=== PATIENT | male | born 1965 | race Caucasian/White ===

== ENCOUNTER 2017-09-10 10:28 | Day surgery (SDC) | payer BC ==
[2017-09-09 15:04] VITALS: BMI 24.7
[2017-09-10] MEDS ORDERED: CEFAZOLIN/Water 2 GM/20 ML SYRINGE ONE (10:58)
[2017-09-10] MEDS ORDERED: Fentanyl 100 MCG/2 ML VIAL ONE ×2 (11:10→13:35)
[2017-09-10] MEDS ORDERED: Midazolam HCl 2 mg/2 ml Vial ONE (11:10)
[2017-09-10] MEDS ORDERED: Dexamethasone 4 mg/ml Vial ONE (11:10)
[2017-09-10] MEDS ORDERED: Bupivacaine HCl 0.5%/Epinephrine 1:200,000/PF 30 ml Vial ONE (14:18)
[2017-09-10] MEDS ORDERED: Meperidine HCl/PF 25 MG/ML VIAL ONE (14:31)
[2017-09-10] MEDS ORDERED: Ondansetron HCl/PF 4 MG/2 ML Vial ONE (14:40)
[2017-09-10] MEDS ORDERED: PROPOFOL 200 MG/20 ML VIAL ONE (14:40)
[2017-09-10] MEDS ORDERED: Ketorolac Tromethamine 30 MG/ML VIAL ONE (14:40)
[2017-09-10] MEDS ORDERED: Lidocaine 1% PF 5 ML VIAL ONE (14:40)
--- NOTE | 2017-09-10 14:56 | RAD ---
LEFT KNEE INTRAOPERATIVE FLUOROSCOPY 4 VIEWS: HISTORY: Fracture. FINDINGS: Intraoperative fluoroscopy was provided for internal fixation as performed by Dr. Louis. Four spo t fluoroscopic images show a total of 4 lag screws transfixing the patella, in anatomic alignment. Fluoro time=22 seconds. POS: [facility]
[2017-09-10] MEDS ORDERED: HYDROcodone/Acetaminophen 5/325 mg Tablet ONE (15:42)
--- NOTE | 2017-09-11 09:59 | OP ---
DATE OF PROCEDURE: 09/10/2017. PREOPERATIVE DIAGNOSIS: Comminuted patellar fracture, left. POSTOPERATIVE DIAGNOSIS: Comminuted patellar fracture, left. SURGICAL PROCEDURE: Open reduction internal fixation, left patella. ANESTHESIA: General. SURGEON: Herve Louis M.D. PILE DRIVER ENGINEER: Jeremias Louis PA-C. TOURNIQUET TIME: 65 minutes at 300 mmHg. IMPLANTS: A 3.5 mm cannulated screws x4. COMPLICATIONS: None. DRAINS: None. SPECIMEN: None. OUTCOME: Satisfactory. INDICATIONS: The patient is a 51-year-old gentleman status post tripped over a gas hose landing dire ctly on the left knee, sustaining a comminuted patellar fracture. After discussion with patient incl uding risks and benefits, we discussed the potential merits of open reduction internal fixation versu s partial patellectomy. At this time, we are going to proceed with anticipated open reduction academic intern al fixation unless the pieces are deemed to be too small for stable fixation. Informed consent has b een obtained. I believe all questions have been answered. DESCRIPTION OF PROCEDURE: The patient was brought to the operating room and a timeout performed foll owed by the induction of general anesthesia. The patient was positioned supine on the OR table and t hen a sterile prep and drape was performed of the left lower extremity. The limb was then exsanguina kenzie with Esmarch bandage, tourniquet inflated to 300 mmHg. A midline anterior knee incision was made . After skin was sharply incised, dissection was carried down sharply down to the level of the perit enon overlying the patellar tendon as well as the periosteum of the patella. The peritenon was incis ed in line with the skin incision and reflected medially and laterally. At this point, he was found to have a small tear of the medial retinaculum with the lateral retinaculum be an intact. The fractu re could easily be palpated through the periosteum. Next, using minimal subperiosteal dissection at the fracture edges, the fracture edges were freed of soft tissue and then a bulb syringe was used to lavage the hematoma from the wound. Next, the vertical split of the superior pole was reapproximated and held in place with a bone tenaculum and then 2 partially threaded guidewires were passed from la teral to medial. Measurement of these guidewires was used to determine the appropriate length cannul ated screws, two cannulated screws partially threaded were then passed from lateral to medial, gettin g good compression of this vertical split of the superior pole. Next, the inferior pole was reapprox imated to this reconstructed superior pole, again held in place with bone tenaculum. Two additional screws were then passed from inferior to superior in standard fashion using the cannulated screw set. This resulted in near anatomic alignment of the fracture with zoroastrian of reasonable joint surfa ce. The small medial retinacular tear was used to allow for digital palpation of the articular surfa ce and this did show significant improvement from his preoperative state and although not anatomic. The small step off was felt to be in the mm to 2 mm range. At this point, it was decided to proceed with a [id number] suture to further stabilize this construct, #5 Ethibond suture was used. This was passed deep to the quadriceps tendon in a [id number] fashion through the patellar tendon an d then securely tied to further support the construct. At this point, the tear of the medial retinac ulum was reapproximated with 0 Vicryl followed by 2-0 Vicryl for the peritenon, and subcutaneous laye rs and then kyle for the skin. A Xeroform gauze, Webril, Manjinder wrap dressing, and knee immobilizer was applied to the knee and then patient was transferred to recovery room in stable condition. The t ourniquet was let down at the completion of dressing with a total time of approximately 65 minutes. There were no complications.
== END 2017-09-10 16:05 | disposition home or self-care (01) ==
LOC: SDC 10:28
PROVIDERS: ATTEND Orthopaedic Surgery
PROC: 0QSF04Z Reposition Left Patella with Internal Fixation Device, Open Approach (ICD-10-PCS; principal; 2017-09-10)
DX: S82.042A Displaced comminuted fracture of left patella, initial encounter for closed fracture (principal); F17.290 Nicotine dependence, other tobacco product, uncomplicated; W01.0XXA Fall on same level from slipping, tripping and stumbling without subsequent striking against object, initial encounter
CPT/HCPCS: 76001; 96374; C1713; C1769; J0670; J1100; J1885; J2001; J2175; J2250; J2405; J2704; J3010